=== PATIENT | female | born 1955 | race Asian ===

== ENCOUNTER 2016-12-21 13:56 | Outpatient (CLI) | payer OTHER | END 2016-12-21 20:34 | disposition home or self-care (01) | LOC: SMA 13:56 | PROVIDERS: ATTEND Obstetrics & Gynecology | DX: Z12.31 Encounter for screening mammogram for malignant neoplasm of breast (principal) | CPT/HCPCS: G0202 ==

== ENCOUNTER 2018-01-16 10:32 | Outpatient (CLI) | payer OTHER | END 2018-01-16 20:56 | disposition home or self-care (01) | LOC: SMA 10:32 | PROVIDERS: ATTEND Obstetrics & Gynecology | DX: Z12.31 Encounter for screening mammogram for malignant neoplasm of breast (principal) | CPT/HCPCS: 77067 ==

== ENCOUNTER 2019-01-17 10:06 | Outpatient (CLI) | payer OTHER | END 2019-01-17 20:56 | disposition home or self-care (01) | LOC: SMA 10:06 | PROVIDERS: ATTEND Family Medicine | DX: Z12.31 Encounter for screening mammogram for malignant neoplasm of breast (principal) | CPT/HCPCS: 77067 ==

== ENCOUNTER 2020-02-18 10:48 | Outpatient (CLI) | payer OTHER | END 2020-02-18 21:01 | disposition home or self-care (01) | LOC: SMA 10:48 | DX: Z12.31 Encounter for screening mammogram for malignant neoplasm of breast (principal); N63.32 Unspecified lump in axillary tail of the left breast; N63.31 Unspecified lump in axillary tail of the right breast | CPT/HCPCS: 77067 ==

== ENCOUNTER 2021-01-11 08:44 | Outpatient (CLI) | payer OTHER, MEDICARE | END 2021-01-11 20:48 | disposition home or self-care (01) | LOC: SMA 08:44 | DX: Z12.31 Encounter for screening mammogram for malignant neoplasm of breast (principal) | CPT/HCPCS: 77067 ==

== ENCOUNTER 2022-01-13 10:11 | Outpatient (CLI) | payer OTHER, MEDICARE | END 2022-01-13 20:42 | disposition home or self-care (01) | LOC: SMA 10:11 | PROVIDERS: ATTEND Family Medicine | DX: Z12.31 Encounter for screening mammogram for malignant neoplasm of breast (principal) | CPT/HCPCS: 77067 ==

== ENCOUNTER 2023-02-24 10:06 | Outpatient (CLI) | payer OTHER, MEDICARE | END 2023-02-24 18:35 | disposition home or self-care (01) | LOC: SMA 10:06 | PROVIDERS: ATTEND Family Medicine | DX: Z12.31 Encounter for screening mammogram for malignant neoplasm of breast (principal); R92.1 Mammographic calcification found on diagnostic imaging of breast | CPT/HCPCS: 77067 ==

== ENCOUNTER 2024-02-29 09:17 | Outpatient (CLI) | payer OTHER, MEDICARE | END 2024-02-29 20:52 | disposition home or self-care (01) | LOC: SMA 09:17 | PROVIDERS: ATTEND Family Medicine | DX: Z12.31 Encounter for screening mammogram for malignant neoplasm of breast (principal); N63.11 Unspecified lump in the right breast, upper outer quadrant | CPT/HCPCS: 77067 ==